=== PATIENT | female | born 1955 | race Caucasian/White ===

== ENCOUNTER 2016-10-01 17:11 | Emergency (ER) | payer OTHER ==
[~2016-10-01] VITALS: Ht 154.9 cm; Wt 80.0 kg
[~2016-10-01 17:11] MED LIST: Z.0.NO CURRENT MEDS
[2016-10-01 17:14] VITALS: BP 124/79; PULSE 74; RESP 17; TEMP 98.8; O2SAT 95
--- NOTE | 2016-10-01 18:35 | PD ---
HPI Chief Complaint: Injury Time Seen by Provider: 18:06 Travel History International Travel<30 days: No Contact w/Intl Traveler<30days: No Traveled to known affect area: No History of Present Illness HPI 61-year-old female arrives with ankle pain. She was gardening today and stepped backwards onto an uneven swarth causing hyper inversion of the right ankle. Since then she's had moderate to severe pain. Ambulating a few steps was very painful and she has since not walked, approx 2 hours or so. Pain does not radiate. PFSH Past Medical History Diminished Hearing: No ?: Not Tubal Ligation: Yes Past Surgical History Hysterectomy: Yes Social History Alcohol Use: Yes (2 BEERS DAILY) Tobacco Use: No (RECENTLY QUIT) Substance Use: No Allergies-Medications (Allergen,Severity, Reaction): Coded Allergies: No Known Allergies (Verified , 10/01/16) Reported Meds & Prescriptions Reported Meds & Active Scripts Active No Active Prescriptions or Reported Medications Physical Exam Narrative GENERAL: 61 yo F, WNWD, NAD SKIN: Warm and dry. HEAD: Normocephalic. EYES: No scleral icterus. No injection or drainage. NECK: Supple, trachea midline. No JVD or lymphadenopathy. MUSCULOSKELETAL: No cyanosis, or edema. TTP dorsal right foot. Minimal ecchymosis. 2+ DP bilaterally. BACK: Nontender without obvious deformity. No CVA tenderness. Data Data Last Documented VS Vital Signs Date Time Temp Pulse Resp B/P Pulse Ox O2 Delivery O2 Flow Rate FiO2 10/01/16 17:14 98.8 74 17 124/79 95 VS reviewed Orders Ankle, Complete ([id number]) (10/01/16 ) Foot, Complete ([id number]) (10/01/16 ) Splint Or Brace Apply/Monitor (10/01/16 18:58) Crutches (10/01/16 18:58) MDM Medical Decision Making Medical Screen Exam Complete: Yes Emergency Medical Condition: Yes Differential Diagnosis ankle fracture, foot fracture, sprain Narrative Course Last 24 hours Impressions Foot X-Ray 10/01/16 0000 Signed Impressions: Service Date/Time: Saturday, October 01, 2016 17:24 - CONCLUSION: No evidence of recent bony injury. Philip Greenberg MD Ankle X-Ray 10/01/16 0000 Signed Impressions: Service Date/Time: Saturday, October 01, 2016 17:24 - CONCLUSION: No evidence of recent bony injury. Philip Greenberg MD The patient is resting comfortably and feels better, is alert and in no distress. The patients results and examination findings were discussed. The repeat examination is unremarkable and benign. The history, exam, diagnostic testing, and current condition do not suggest any significant pathology to warrant further testing, continued ED treatment, admission, or surgical evaluation at this point. The vital signs have been stable. The patient does not have uncontrollable pain, intractable vomiting, or other significant symptoms. The patient's condition is stable and appropriate for discharge. The patient will pursue further outpatient evaluation with a primary care physician or other designated or consulting physician as indicated in the discharge instructions. The patient expressed understanding and was agreeable with this plan. Diagnosis Primary Impression: Right foot injury Qualified Code: S99.921A - Right foot injury, initial encounter Referrals: Erich Kauffman DPM 2 days Additional Instructions: You have a choice when it comes to health care, and we are glad that you chose [facility]. Hopefully, we have met your expectations on today's visit. You are welcome to return to [facility] at any time, as we are committed to meeting the health care needs of our community. Med/Other Pt SpecificInfo: No Change to Meds Scripts No Active Prescriptions or Reported Meds Disposition: 01 DISCHARGE HOME Condition: Stable Juan Duffy MD Oct 01, 2016 18:35
--- NOTE | 2016-10-01 18:48 | RADHPO ---
EXAM DATE/TIME: 10/01/2016 17:24 [facility] COMPARISON: No previous studies available for comparison. INDICATIONS : Right ankle pain post fall today. MEDICAL HISTORY : None. SURGICAL HISTORY : None. ENCOUNTER: Initial ACUITY: 1 day PAIN SCORE: 8/10 LOCATION: Right ankle. FINDINGS: Three view exam was performed of the right ankle. The bony structures are in normal alignment. No e vidence of fracture, dislocation, or soft tissue swelling. Ankle mortise is intact. Dorsal osteophy te arising from the navicular. Moderate-sized plantar calcaneal spur. The ankle mortise is intact. No radiopaque foreign bodies are seen. Bony mineralization is normal. CONCLUSION: No evidence of recent bony injury. Philip Greenberg MD on October 01, 2016 at 18:46 Board Certified Radiologist. This report was verified electronically.
--- NOTE | 2016-10-01 18:49 | RADHPO ---
EXAM DATE/TIME: 10/01/2016 17:24 [facility] COMPARISON: No previous studies available for comparison. INDICATIONS : Right foot pain post fall today. MEDICAL HISTORY : None. SURGICAL HISTORY : None. ENCOUNTER: Initial ACUITY: 1 day PAIN SCORE: 5/10 LOCATION: Right foot. 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 There is a moderate sized dorsal osteophyte arising from the navicular. The osseous structures of the forefoot and midfoot are in normal alignment. Large plantar calcaneal spur. No significant soft tissue swelling. No radiopaque foreign bodies. CONCLUSION: No evidence of recent bony injury. Philip Greenberg MD on October 01, 2016 at 18:47 Board Certified Radiologist. This report was verified electronically.
== END 2016-10-01 19:40 | disposition home or self-care (01) ==
LOC: PHEFT 17:11
DX: S99.921A Unspecified injury of right foot, initial encounter (principal); Z87.891 Personal history of nicotine dependence; X50.1XXA Overexertion from prolonged static or awkward postures, initial encounter; Y93.H2 Activity, gardening and landscaping; Y92.007 Garden or yard of unspecified non-institutional (private) residence as the place of occurrence of the external cause; Y99.8 Other external cause status
CPT/HCPCS: 29515; 73610; 73630; 99283; E0113